=== PATIENT | female | born 1955 | race Caucasian/White ===

== ENCOUNTER 2017-07-05 10:13 | Emergency (ER) | payer OTHER ==
[~2017-07-05] VITALS: Ht 167.6 cm; Wt 91.4 kg
[~2017-07-05 10:13] MED LIST: ALBUTEROL; ALBUTEROL17 G1 IH; ALLEGRA180 MG PO; ASPIR-LOW81 MG PO; ATIVAN1 MG PO; AZITHROMYCIN250 MG PO; BIAXIN500 M1 PO; BIAXIN500 MG PO; BROVANA15 MCG/2 M IH; BUDESONIDE0.25 MG/2 IH; CELEXA10 MG PO; CELEXA20 MG PO; CLARITHROMYCIN500 MG PO; DUONEB 2.5-0.5 M3 ML AEROSOL; NASONEX17 GM NS; PREDNISONE10 MG PO; PREDNISONE20 MG PO; PREDNISONE50 MG PO; PROAIR HFA8.5 GM IH; PROVENTIL,2.5 MG/0.5 IH; PROVENTIL,2.5 MG/3 M IH; PULMICORT0.25 MG/1 IH; PULMICORT1 MG/2 ML IH; Proventil,Ventolin H IH; SPIRIVA1 INHALATI IH; TAMIFLU75 MG PO; TYLENOL EXTRA500 MG PO; ZITHROMAX Z-PA250 MG PO; ZOFRAN ODT4 MG PO; ZYVOX600 MG PO
[2017-07-05] MEDS ORDERED: PERCOCET 5/31 TABLET PO (12:19)
[2017-07-05 12:52] VITALS: BP 138/74
== END 2017-07-05 12:56 | disposition home or self-care (01) ==
LOC: EME 10:13
PROC: 2W3LX1Z Immobilization of Right Lower Extremity using Splint (ICD-10-PCS; principal; 2017-07-05)
DX: S92.354A Nondisplaced fracture of fifth metatarsal bone, right foot, initial encounter for closed fracture (principal); S93.401A Sprain of unspecified ligament of right ankle, initial encounter; W10.9XXA Fall (on) (from) unspecified stairs and steps, initial encounter; Y93.01 Activity, walking, marching and hiking; Y92.008 Other place in unspecified non-institutional (private) residence as the place of occurrence of the external cause; J44.9 Chronic obstructive pulmonary disease, unspecified; Z88.8 Allergy status to other drugs, medicaments and biological substances; Z87.891 Personal history of nicotine dependence
CPT/HCPCS: 73610; 99281; 99283